=== PATIENT | female | born 1990 | race Caucasian/White ===

== ENCOUNTER 2023-11-15 21:56 | Emergency (ER) | payer OTHER, SELFPAY ==
[2023-11-15 22:03] VITALS: BP 134/91; PULSE 75; RESP 17; TEMP 36.4; O2SAT 100
--- NOTE | 2023-11-15 23:36 | ED.EXTPRO ---
HPI - Extremity Problem General Chief complaint: Extremity Problem,Nontraumatic Stated complaint: numbness to right leg Time Seen by Provider: 11/15/23 23:14 Source: patient Mode of arrival: ambulatory Limitations: no limitations History of Present Illness HPI Narrative: this is a 33-year-old female who presents to the ED for chief complaint of right leg numbness and tingling for the past 10 days. Patient reports that the tingling started in the right foot and ankle seems to be progressing superiorly. It is most concentrated from right knee to right ankle. Reports that occasionally she will have pain/ tingling in the posterior right thigh and into the buttock. patient reports that she has footdrop on the right and it causes difficulty with ambulation. Is not having a whole lot of lower back pain but has had back injuries in the distant past. Denies fevers, chills, IV drug use, long-term steroid use, bowel or bladder dysfunction. She has history of celiac disease but does receive B12 injections regularly. Related Data Allergies Allergy/AdvReac Type Severity Reaction Status Date / Time No Known Allergies Allergy Verified 11/15/23 22:07 Review of Systems Review of Systems: All systems as dictated in HPI Exam Narrative: GENERAL: Well-appearing, well-nourished, and in no acute distress. HEAD: Normocephalic, atraumatic. EYES: PERRLA and EOMI. ENT: Nares clear, no rhinorrhea or epistaxis. Mucous membranes moist. Oropharynx without tonsillar hypertrophy exudate or other lesions. NECK: Supple. No adenopathy or masses. CHEST: No respiratory distress. Clear to auscultation. No wheezes rales or rhonchi HEART: Regular rate and rhythm. No murmur heard. Normal peripheral pulses. ABDOMEN: Soft, nontender, nondistended, normal active bowel sounds. MSK: Normal range of motion. No edema. 4/5 strength with dorsiflexion of the right foot compared 5/5 dorsiflexion on the left. Strength exam is otherwise grossly intact throughout the lower extremities. Subjective paresthesias reported to the right lateral lower extremity SKIN: Warm, dry, no rash. NEURO: Alert and oriented x4. No focal deficits. PSYCH: Normal mood and affect. Course Vital Signs Vital signs: Vital Signs Temperature 97.6 F 11/15/23 22:03 Pulse Rate 75 11/15/23 22:03 Respiratory Rate 17 11/15/23 22:03 Blood Pressure 134/91 H 11/15/23 22:03 Pulse Oximetry 100 11/15/23 22:03 Oxygen Delivery Room Air 11/15/23 22:03 Temperature 97.6 F 11/15/23 22:03 Pulse Rate 70 11/16/23 00:42 Respiratory Rate 16 11/16/23 00:42 Blood Pressure 112/67 11/16/23 00:42 Pulse Oximetry 100 11/16/23 00:42 Oxygen Delivery Room Air 11/15/23 22:03 MDM - Extremity (Nontraumatic) MDM Narrative Medical decision making narrative: This is a 33-year-old female who presents to the ED for chief complaint of right-sided foot drop and right lower extremity tingling. Vitals are normal. Exam is remarkable for the above. No significant report of back pain although she does have sciatic history. There is cord 5 strength on the right dorsiflexion compared to the 5/5 on the left. Deficit is quite minimal on exam objectively. lab work is unremarkable. Discussed these findings with the patient. Feel that she will most likely need to see neurosurgery so for was given. Also encouraged PCP follow-up as she may need an MRI of the lower back. She is able to ambulate without assistance so shared decision making for discharge home today. Pt will be discharged in stable condition. Return precautions given and supportive measures discussed. Pt is understanding and agreeable with plan for discharge and follow-up with PCP/neuro Lab Data 11/15/23 23:44 11/15/23 23:44 Labs: Lab Results 11/15/23 Range/Units 23:44 WBC 7.3 (4.5-10.0) K/mm3 RBC 4.62 (4.2-5.4) M/mm3 Hgb 13.0 (12.0-15.0) g/dL Hct 39.6 (37.0-47
[2023-11-15 23:39] VITALS: BP 118/64; PULSE 69; RESP 14; O2SAT 100
[2023-11-15 23:49] LABS: Basophils Absolute Auto 0.1 K/mm3 (0.0-0.1); Basophils Percent Auto 0.8 % (0.2-1.2); Eosinophils Absolute Auto 0.1 K/mm3 (0-0.3); Hematocrit 39.6 % (37.0-47.0); Immature Granulocyte Absolute 0.02 K/mm3 (0.00-0.031); Immature Granulocyte Percent A 0.3 % (0-0.5); Lymphocytes Absolute Auto 2.85 K/mm3 (0.9-3.2); Lymphocytes Percent Auto 39.3 % (18.3-44.2); Mean Corpuscular HGB Conc 32.8 g/dl (32-36); Mean Corpuscular Hemoglobin 28.1 pg (26-34); Mean Corpuscular Volume 85.7 fl (80-100); Mean Platelet Volume 9.9 fl (7.4-10.4); Monocytes Absolute Auto 0.5 K/mm3 (0.1-0.6); Monocytes Percent Auto 6.5 % (2.6-8.5); Neutrophils Absolute Auto 3.8 K/mm3 (1.3-6.7); Neutrophils Percent Auto 52.1 % (45.5-73.1); Platelet Count Result 252 k/mm3 (150-375); Red Blood Count 4.62 M/mm3 (4.2-5.4); Red Cell Distribution Width 13.7 % (11.5-14.5); White Blood Count 7.3 K/mm3 (4.5-10.0)
[2023-11-16 00:02] LABS: Alanine Aminotransferase 17 U/L (6-35); Albumin Level 4.1 g/dL (3.5-5.1); Alkaline Phosphatase 48 U/L (38-126); Anion Gap 9 mmol/L (4-12); Aspartate Amino Transferase 18 U/L (14-36); Bilirubin,Total 0.3 mg/dL (0.2-1.3); Blood Urea Nitrogen 14 mg/dL (7-17); Calcium 8.9 mg/dL (8.4-10.2); Carbon Dioxide 25 mmol/L (22-30); Chloride 104 mmol/L (98-107); Estimated CRCL calculation 72 ml/min; Estimated Glomerular Filt Rate > 60; Glucose 84 mg/dL (65-110); Magnesium 2.1 mg/dL (1.6-2.3); Potassium 3.9 mmol/L (3.4-5.0); Sodium 138 mmol/L (137-145)
[2023-11-16 00:11] LABS: SPREG INTERNAL CONTROL Positive; Serum Qual hCG Negative
[2023-11-16 00:42] VITALS: BP 112/67; PULSE 70; RESP 16; O2SAT 100
== END 2023-11-16 00:47 | disposition home or self-care (01) ==
PROVIDERS: Emergency Medicine; Emergency Provider Physician Assistant; PCP Internal Medicine
DX: M21.371 Foot drop, right foot (principal); K90.0 Celiac disease
CPT/HCPCS: 36415; 80053; 83735; 84703; 85025; 99283